=== PATIENT | male | born 1970 | race Caucasian/White ===

== ENCOUNTER 2017-03-18 23:30 | Emergency (ER) | payer MEDICAID ==
[2013-05-23 03:54] VITALS: BMI 35.3
[~2017-03-18 23:30] MED LIST: ASPIRIN325 MG PO; NIACIN100 MG PO; NITROQUICK0.4 MG SL
== END 2017-03-19 01:30 | disposition home or self-care (01) ==
LOC: D.ER 23:30
DX: S05.01XA Injury of conjunctiva and corneal abrasion without foreign body, right eye, initial encounter (principal); X58.XXXA Exposure to other specified factors, initial encounter; Y93.89 Activity, other specified; Y92.89 Other specified places as the place of occurrence of the external cause; I10 Essential (primary) hypertension; F17.200 Nicotine dependence, unspecified, uncomplicated

== ENCOUNTER 2018-03-27 15:24 | Emergency (ER) | payer SELFPAY ==
[~2018-03-27] VITALS: Ht 182.9 cm; Wt 113.6 kg
[2018-03-27 15:44] VITALS: BP 133/83; Ht 182.9 cm; Wt 113.6 kg
[2018-03-27] MEDS ORDERED: GENTAK3.5 GM EACH EYE (16:57)
[2018-03-27] MEDS ORDERED: GENTAMICIN 0.3 %5 ML EACH EYE (17:05)
== END 2018-03-27 17:45 | disposition home or self-care (01) ==
LOC: D.ER 15:24
DX: H10.32 Unspecified acute conjunctivitis, left eye (principal)